=== PATIENT | female | born 1980 | race Native Hawaiian/Other Pacific Islander ===

== ENCOUNTER 2016-03-24 09:48 | Emergency (ER) | payer OTHER ==
[~2016-03-24] VITALS: Ht 172.7 cm; Wt 59.0 kg
[2016-03-24 11:43] LABS: PLATELET COUNT 243 K/uL (152-353)
[2016-03-24 12:08] LABS: POTASSIUM 3.9 mmol/L (3.6-5.2); SODIUM 135 mmol/L (136-145)
[2016-03-24 13:05] VITALS: BP 118/70; TEMP 98.1
== END 2016-03-24 13:07 | disposition home or self-care (01) ==
LOC: ED 09:48
PROVIDERS: Emergency Medicine
DX: R10.13 Epigastric pain (principal); I44.7 Left bundle-branch block, unspecified
CPT/HCPCS: 36415; 80053; 81000; 81025; 82150; 82550; 83690; 84484; 85027; 86318; 93005; 99283

== ENCOUNTER 2018-12-02 09:27 | Emergency (ER) | payer OTHER ==
[~2018-12-02] VITALS: Ht 172.7 cm; Wt 68.0 kg
[2018-12-02 09:30] VITALS: TEMP 98.6
[2018-12-02 10:16] LABS: PLATELET COUNT 275 K/uL (152-353)
[2018-12-02 10:32] LABS: POTASSIUM 4.1 mmol/L (3.6-5.2); SODIUM 140 mmol/L (136-145)
[2018-12-02 11:21] VITALS: BP 111/74
== END 2018-12-02 11:29 | disposition home or self-care (01) ==
LOC: ED 09:27
PROVIDERS: Emergency Medicine
DX: R07.89 Other chest pain (principal); Z98.82 Breast implant status; I44.7 Left bundle-branch block, unspecified
CPT/HCPCS: 36415; 80053; 82550; 83735; 84484; 85027; 93005; 96374; 99284; J1885

== ENCOUNTER 2022-05-06 09:30 | Outpatient (CLI) | payer OTHER | END 2022-05-06 19:36 | disposition home or self-care (01) | LOC: MAMMO 09:30 | PROVIDERS: ATTEND Nurse Practitioner Family | DX: Z12.31 Encounter for screening mammogram for malignant neoplasm of breast (principal) ==

== ENCOUNTER 2022-10-31 08:15 | Outpatient (CLI) | payer OTHER | END 2022-10-31 19:13 | disposition home or self-care (01) | LOC: US 08:15 | PROVIDERS: ATTEND Nurse Practitioner Family | DX: R19.09 Other intra-abdominal and pelvic swelling, mass and lump (principal) ==